=== PATIENT | male | born 1950 | race Caucasian/White ===

== ENCOUNTER → 2017-04-22 | Outpatient (CLI) | payer BC ==
[~2017-04-22] MED LIST: AMLO5TAB2 PO; CHOL1CAP34 PO; CYCL10TA PO; ERGO2000 PO; GABA100C4 PO; LOSA50TA PO; MELO15TA20 PO; NEUR300C PO; TRAM50TA PO; WALKER WHEELS/F1 MIS
[2017-04-22 13:58] LABS: APTT (PATIENT) 27.5 SEC (24.3-30.1); PROTHROMBIN TIME - PATIENT 10.1 SEC (9.8-11.6)
[2017-04-22 14:03] LABS: AUTOMATED NEUTROPHIL # 6.6 TH/MM3 (1.8-7.7); BASOPHIL # 0.1 TH/MM3 (0-0.2); BASOPHIL % 0.7 % (0.0-2.0); EOSINOPHIL # 0.2 TH/MM3 (0-0.4); EOSINOPHIL % 1.5 % (0.0-4.0); HEMATOCRIT 42.5 % (39.0-51.0); HEMO FLAGS DIFF FINAL; LYMPHOCYTE # 2.4 TH/MM3 (1.0-4.8); MEAN CORPUSCULAR HEMOGLOBIN 29.2 PG (27.0-34.0); MEAN CORPUSCULAR HGB CONC 34.8 % (32.0-36.0); MONO % 10.4 % (0.0-8.0); NEUT % 64.4 % (16.0-70.0); PLATELET COUNT 237 TH/MM3 (150-450); RED BLOOD COUNT 5.06 MIL/MM3 (4.50-5.90); RED CELL DISTRIBUTION WIDTH 13.6 % (11.6-17.2); WHITE BLOOD COUNT 10.3 TH/MM3 (4.0-11.0)
[2017-04-22 14:14] LABS: ALT (GPT) 18 U/L (12-78); ANION GAP 4 MEQ/L (5-15); AST (GOT) 11 U/L (15-37); BICARBONATE 32.2 MEQ/L (21.0-32.0); BLOOD UREA NITROGEN 10 MG/DL (7-18); CHLORIDE 104 MEQ/L (98-107); GLOMERULAR FILTRATION RATE 71 ML/MIN (>89); GLUCOSE,FASTING 74 MG/DL (74-99); POTASSIUM 3.5 MEQ/L (3.5-5.1); SODIUM (NA) 140 MEQ/L (136-145)
[2017-04-22 14:16] LABS: ALKALINE PHOSPHATASE 83 U/L (45-117); TOTAL BILIRUBIN ADULT 0.5 MG/DL (0.2-1.0)
[2017-04-22 14:33] LABS: BLOOD, URINE NEG (NEG); COMMENT (UR) CULT NOT INDICATED; CULTURE IF INDICATED CULT NOT INDICATED; GLUCOSE,URINE 1000 mg/dL (NEG); HYALINE CAST, URINE 1 /lpf (RARE); KETONE, URINE NEG (NEG); MUCUS URINE FEW /lpf (OCC); NITRITE,URINE NEG (NEG); URINE COLOR YELLOW (YELLW/STRAW)
--- NOTE | 2017-04-22 14:55 | RADRPT ---
EXAM DATE/TIME: 04/22/2017 14:15 [facility] COMPARISON: No previous studies available for comparison. INDICATIONS : Evaluate for pneumonia, pneumothorax or communicable disease. Pre op for cervical spine -99- 17. MEDICAL HISTORY : None. SURGICAL HISTORY : None. ENCOUNTER: Initial ACUITY: 1 day PAIN SCORE: 0/10 LOCATION: Bilateral chest FINDINGS: PA and lateral views of the chest demonstrate minimal atelectasis at the right lung base. Right hemid iaphragm is slightly elevated. Aorta is quite tortuous.. The cardiomediastinal contours are unremark able. Osseous structures are intact. CONCLUSION: Atelectasis in the right lung base. Aorta is quite tortuous. Darell Schwartz MD on April 22, 2017 at 14:52 Board Certified Radiologist. This report was verified electronically.
--- NOTE | 2017-04-22 16:21 | EKG ---
Date Performed: 04/22/2017 Time Performed: 13:37:04 PTAGE: 67 years EKG: Baseline artifact present Sinus bradycardia Prolonged QT interval Left ventricular hypertro phy Inferior T wave changes are nonspecific Abnormal ECG NO PREVIOUS TRACING DOCTOR: Brandon Bennett Interpretating Date/Time 04/22/2017 16:21:05
[2017-04-22 18:50] LABS: MRSA PCR NEGATIVE (NEGATIVE); STAPH AUREUS PCR POSITIVE (NEGATIVE)
== END ==
LOC: CPRE 13:17
PROVIDERS: ATTEND Neurological Surgery
DX: Z01.812 Encounter for preprocedural laboratory examination (principal); Z01.811 Encounter for preprocedural respiratory examination; Z01.810 Encounter for preprocedural cardiovascular examination; M47.12 Other spondylosis with myelopathy, cervical region; M50.30 Other cervical disc degeneration, unspecified cervical region; M48.02 Spinal stenosis, cervical region; R94.31 Abnormal electrocardiogram [ECG] [EKG]
CPT/HCPCS: 36415; 71020; 80053; 81001; 85025; 85610; 85730; 87640; 87641; 93005

== ENCOUNTER 2017-04-24 05:38 | Inpatient (IN) | payer BC, MEDICARE ==
[~2017-04-24] VITALS: Ht 170.2 cm; Wt 82.5 kg
[~2017-04-24 05:38] MED LIST changes: -CYCL10TA PO; -ERGO2000 PO; -GABA100C4 PO; -NEUR300C PO; -WALKER WHEELS/F1 MIS
[2017-04-24] MEDS ORDERED: SODIUM CHLOR 0.9% 1000 ML INJ 1,000 ML IV SCH (06:15)
[2017-04-24] MEDS ORDERED: VANCOMYCIN HCL 1000 MG ON-CALL/NS 250 ML IV SCH ×2 (06:15)
[2017-04-24] MEDS ORDERED: CHLORHEXIDINE GLUCONATE 2 % 1 PACK (2 CLOTHS) TOPICAL ONE (06:15)
[2017-04-24] MEDS ORDERED: METOPROLOL TARTRATE 25 MG TAB PO PRN (06:30)
[2017-04-24] MEDS ORDERED: LACTATED RINGER'S 1000 ML IV PRN (06:30)
[2017-04-24] MEDS ORDERED: SODIUM CHLORID 0.9% 500 ML IV PRN (06:30)
[2017-04-24] MEDS ORDERED: CHLORHEXIDINE GLUCONATE 2 % 1 PACK (2 CLOTHS) TOPICAL PRN (06:30)
[2017-04-24] MEDS ORDERED: POVIDONE IODINE 5% (ANTISEPSIS KIT) 4 APPLICATIONS EACH NARE PRN (06:30)
[2017-04-24] MEDS ORDERED: THROMBIN (TOPICAL) 5,000 UNIT VIAL ONE ×2 (06:52→10:40)
[2017-04-24] MEDS ORDERED: VANCOMYCIN HCL 1000 MG VIAL ONE (06:52)
[2017-04-24] MEDS ORDERED: GELFOAM SIZE 100 ONE ×2 (06:52→10:41)
[2017-04-24] MEDS ORDERED: BUPIVACAINE/EPINEPHRINE 0.5% PF 30 ML VIAL ONE (06:52)
[2017-04-24] MEDS ORDERED: PROPOFOL 500 MG/50 ML INJ 150 ML ONE (07:19)
[2017-04-24] MEDS ORDERED: ACETAMINOPHEN 1000 MG/100 ML 100 ML IV ONE (07:20)
[2017-04-24] MEDS ORDERED: ARTIFICIAL TEARS OPTH OINT 3.5 APPLIC/3.5 GM TUBO ONE (07:20)
[2017-04-24] MEDS ORDERED: fentaNYL CITRATE 250 MCG/5 ML AMP ONE ×2 (07:21)
[2017-04-24] MEDS ORDERED: DEXAMETHASONE SOD PHOS 4 MG/ML VIAL ONE (08:11)
[2017-04-24] MEDS ORDERED: LIDOCAINE HCL 1% PF 5 ML SYRINGE OTHER ONE (12:00)
[2017-04-24] MEDS ORDERED: LACTATED RINGER'S 1000 ML INJ 2,000 ML IV ONE (12:00)
[2017-04-24] MEDS ORDERED: ceFAZolin INJ 1,000 MG VIAL IV ONE (12:00)
[2017-04-24] MEDS ORDERED: LABETALOL HCL 100 MG/20 ML VIAL IV ONE (12:00)
[2017-04-24] MEDS ORDERED: PROPOFOL 200 MG/20 ML AMP IV ONE (12:00)
[2017-04-24] MEDS ORDERED: ONDANSETRON HCL 4 MG/2 ML VIAL IV ONE (12:00)
[2017-04-24] MEDS ORDERED: KETOROLAC TROMETHAMINE 30 MG/ML (IVP) VIAL IV PUSH ONE (12:00)
[2017-04-24] MEDS ORDERED: SODIUM CHLOR 0.9% 250 ML INJ 250 ML IV ONE (12:00)
[2017-04-24] MEDS ORDERED: PHENYLEPH/NS 1000 MCG/10 ML SYR IV ONE (12:00)
[2017-04-24] MEDS ORDERED: ROCURONIUM INJ 50 MG/5 ML SYRINGE IV PUSH ONE (12:00)
[2017-04-24] MEDS ORDERED: ePHEDrine/NS 25 MG/5 ML SYRINGE IV ONE (12:00)
[2017-04-24] MEDS ORDERED: DEXAMETHASONE SOD PHOS 4 MG/ML VIAL IV ONE (12:00)
[2017-04-24] MEDS ORDERED: SODIUM CHLORID 0.9% 500 ML INJ 500 ML IV ONE (12:00)
[2017-04-24] MEDS ORDERED: MENTHOL LOZENGE BUCCAL PRN (12:15)
[2017-04-24] MEDS ORDERED: cloNIDine HCL 0.1 MG TAB PO PRN (12:15)
[2017-04-24] MEDS ORDERED: SENNOSIDES 8.6 MG TAB PO PRN (12:15)
[2017-04-24] MEDS ORDERED: SODIUM CHLORIDE 0.9% FLUSH 10 ML FLUSH IV FLUSH PRN (12:15)
[2017-04-24] MEDS ORDERED: BISACODYL 10 MG SUPP RECTAL PRN (12:15)
[2017-04-24] MEDS ORDERED: RESP: ALBUTEROL 2.5 MG/3 ML NEB (PRN) NEB (12:15)
[2017-04-24] MEDS ORDERED: PROMETHAZINE INJ 25 MG/ML VIAL IM PRN (12:15)
[2017-04-24] MEDS ORDERED: LACTULOSE SYRUP 20 GM/30 ML CUP PO PRN (12:15)
[2017-04-24] MEDS ORDERED: ACETAMINOPHEN 325 MG TAB PO PRN (12:15)
[2017-04-24] MEDS ORDERED: MORPHINE SULFATE 4 MG/ML INJ IV PUSH PRN (12:15)
[2017-04-24] MEDS ORDERED: ONDANSETRON HCL 4 MG/2 ML VIAL IV PUSH PRN (12:15)
--- NOTE | 2017-04-24 12:20 | PD.OP ---
cc: Fahad Moses MD, MD Operative Report Date of Surgery: Apr 24, 2017 Preoperative Diagnosis: Cervical myelopathy with spinal cord compression at C2-3, C3-4 and C4-5 levels with associated scoliosis Postoperative Diagnosis: Same Procedure: Posterior C2-5 fusion with lateral mass fixation; C2, C3, C4 and C5 decompressive laminectomies; microsurgical technique Anesthesia: Gen. endotracheal by Anirudh lopez Surgeon: Luca Smart M.D. Sewer Tapper(s): Luis Simmons Operation and Findings: Following administration of general endotracheal anesthesia with the neck maintained in neutral position in a [place] collar, patient had a Paz catheter placed with sequential compression devices. A gram of vancomycin and Decadron 10 mg was administered intravenously. He was then turned on a prone position on a Sanjeev table and the head secured in a horseshoe headrest and all pressure points adequately padded. Posterior cervical region was then shaved and prepped with Betadine solution and ChloraPrep. Sterile draping undertaken along with Ioban and a midline incision extending from the C2 to the C5 levels was then made after infiltrating the skin was 0.5% Marcaine with epinephrine solution. Intraoperative fluoroscopy used for level confirmation. Retractors were used for exposure after the fascia incised and the muscular attachments to the spinous process and lamina along with the facets detached from C2-5 levels bilaterally. There appeared to be C2-3 lateral mass auto fusion evident. Further dissection was undertaken using microtechnique with microscope magnification. I drilled out the lamina at the junction of the facets from C3 to C5 levels bilaterally and an en bloc laminectomy undertaken for decompression the spinal canal. The inferior half of the C2/lamina and hypertrophied ligamentum flavum was also resected with a Kerrison and the spinal canal decompressed. The ligamentum flavum were also resected with Kerrisons. The facets on both sides decorticated with a curette. Subsequently lateral mass fixation undertaken with the [employer] screws with entry point of the midportion of the facet on the right side from C3 to C5 levels. The screw trajectory was lateral and superiorly guided with fluoroscopy also. Screws were then connected with a stevenson and locked in place with caps. The construct appeared to be secure this point in AP and lateral fossae confirmed good placement and alignment. The good decorticated facets were then packed from C2 to C5 levels with the local autograft morselized bone for posterolateral fusion. There was thinning of the dura left C2-C3 level which was reinforced with Gelfoam and DuraSeal and no CSF leak encountered. The area was then copiously irrigated with antibody solution laminectomy edges and hemostasis achieved with bone wax along with Gelfoam and thrombin. Retractors removed and the muscle and fascia using 2-0 Vicryl interrupted sutures and 3-0 Vicryl subcuticular stitch also placed in an interrupted fashion and final skin closure was with geni. A sterile dressing was applied and the neck immobilized in the [place] collar. He was then turned in supine position and extubated and taken to recovery room. There were no intraoperative complications and all sponge and needle count was correct at the end the procedure. Estimated blood loss [id number]. Patient did undergo intraoperative neurologic monitoring which remained stable throughout surgery. Luca Smart MD Apr 24, 2017 12:20
[2017-04-24] MEDS: NS + KCL 20 MEQ INJ 1,000 ML IV SCH ×2 (13:00→20:58)
[2017-04-24] MEDS: DEXAMETHASONE SOD PHOS 4 MG/ML VIAL IV PUSH SCH ×2 (13:00→18:49)
[2017-04-24] MEDS ORDERED: DO NOT ADM ANY ANTICOAGULANT DRUGS PRN (13:00)
[2017-04-24] MEDS ORDERED: ceFAZolin INJ 1,000 MG VIAL ONE (13:35)
[2017-04-24] MEDS ORDERED: SODIUM CHLORIDE 0.9% INJ 100 ML ONE (13:36)
--- NOTE | 2017-04-24 14:34 | RADRPT ---
EXAM DATE/TIME: 04/24/2017 09:21 [facility] COMPARISON: No previous studies available for comparison. INDICATIONS : Cervical spine C2-5 laminectomy and fusion. OR. MEDICAL HISTORY : None. SURGICAL HISTORY : None. ENCOUNTER: Initial ACUITY: 1 day PAIN SCORE: Non-responsive. LOCATION: Cervical spine FINDINGS: Two projection examination was performed intraoperatively. 3 levels and laminar screws have been plac ed posteriorly on the right CONCLUSION: Posterior fusion right from C3-C5. Darell Schwartz MD on April 24, 2017 at 14:31 Board Certified Radiologist. This report was verified electronically.
[2017-04-24 16:00] VITALS: BP 134/76; PULSE 73; RESP 18; TEMP 98.1; O2SAT 95
[2017-04-24 20:00] VITALS: BP 125/79; PULSE 70; RESP 18; TEMP 98.4; O2SAT 96
[2017-04-24] MEDS ORDERED: ZOLPIDEM TARTRATE 5 MG TAB PO PRN (21:00)
[2017-04-24] MEDS: DOCUSATE SODIUM 50 MG/SENNA 8.6 MG TAB PO SCH (22:35)
[2017-04-24] MEDS: CYCLOBENZAPRINE HCL 10 MG TAB PO PRN (22:35)
[2017-04-24] MEDS: SODIUM CHLORIDE 0.9% FLUSH 10 ML FLUSH IV FLUSH SCH (22:36)
[2017-04-25] VITALS (8 sets, daily range): BP systolic 123–160; BP diastolic 70–90; PULSE 70–87; RESP 16–20; TEMP 97.4–98.4; O2SAT 93–96
[2017-04-25] MEDS: DEXAMETHASONE SOD PHOS 4 MG/ML VIAL IV PUSH SCH (00:28)
[2017-04-25] MEDS: ACETAMINOPHEN/HYDROcodone 325 MG/10 MG TAB PO PRN ×3 (03:36→20:10)
[2017-04-25] MEDS: NS + KCL 20 MEQ INJ 1,000 ML IV SCH (08:13)
[2017-04-25] MEDS: PANTOPRAZOLE SOD 40 MG DELAYED RELEASE TAB PO SCH (08:45)
[2017-04-25] MEDS: amLODIPine BESYLATE 5 MG TAB PO SCH (08:46)
[2017-04-25] MEDS: LOSARTAN 50 MG TAB PO SCH (08:46)
[2017-04-25] MEDS: DOCUSATE SODIUM 50 MG/SENNA 8.6 MG TAB PO SCH ×2 (08:46→20:06)
[2017-04-25] MEDS: CYCLOBENZAPRINE HCL 10 MG TAB PO PRN ×2 (08:48→16:23)
[2017-04-25] MEDS: SODIUM CHLORIDE 0.9% FLUSH 10 ML FLUSH IV FLUSH SCH ×2 (08:50→20:04)
--- NOTE | 2017-04-25 11:56 | HHI.NSPN ---
(Brian Patterson) History Chief Complaint: Incisional neck pain. (Brian Patterson) Interval History 04/25/17: Pt s/p Posterior C2-5 fusion with lateral mass fixation; C2, C3, C4 and C5 decompressive laminectomies; microsurgical technique on 04/24/17. He is doing well pod #1. Incisional pain controlled with pain medication. No radiculopathy in UEs. Numbness in fingertips in all fingers except thumbs bilaterally. (Brian Patterson) Review of Systems General: Negative for: fever, chills, insomnia Respiratory: Negative for: shortness of breath, cough, sputum Cardiovascular: Negative for: chest pain Gastrointestinal: Negative for: nausea, vomitting, diarrhea, constipation ( Brian Patterson) Exam Results Vital Signs Date Time Temp Pulse Resp B/P (MAP) Pulse Ox O2 Delivery O2 Flow Rate FiO2 04/25/17 09:35 96 04/25/17 08:00 97.8 78 20 147/82 (103) 04/25/17 00:32 Nasal Cannula 2.00 Intake and Output 04/25/17 04/25/17 04/26/17 08:00 16:00 00:00 Intake Total 2100 ml Output Total 600 ml Balance 1500 ml (Brian Patterson) Physical Examination General: Pt resting comfortably in bed in NAD. Resp: CTA bilaterally Heart: NSR no murmurs Abd: Soft positive bs Skin: Incision clean and dry. Bandage intact. Muscle: Moves all 4 extremities well. [place] cervical collar in place. Neuro: Pt awake and alert. Follows simple commands well. Speech clear and appropriate. (Brian Patterson) Lab, Micro, Other Results Last Impressions Cervical Spine X-Ray 04/24/17 0000 Signed Impressions: Service Date/Time: April 09:21 - CONCLUSION: Posterior fusion right from C3-C5. Darell Schwartz MD (Brian Patterson) Medical Decision Making Impression and Plan A: 67 y/o M s/p Posterior C2-5 fusion with lateral mass fixation; C2, C3, C4 and C5 decompressive laminectomies on 04/24/17. P: Continue to monitor Continue with current care Rehab efforts. Pt will need rehab placement. (Brian Patterson) Attending Statement The exam, history, and the medical decision-making described in the above note were completed with the assistance of the mid-level provider. I reviewed and agree with the findings presented. I attest that I had a [id number] encounter with the patient on the same day, and personally performed and documented my assessment and findings in the medical record. Relates minimal pain and ambulated with physical therapy. Stiffness and numbness in the upper extremities is improving postoperatively. Relates to me that he would prefer to go home with PT rather than rehabilitation. We will see how he progresses next couple days prior to making a final disposition. (Luca Smart MD) Brian Patterson Apr 25, 2017 11:56 Luca Smart MD Apr 25, 2017 13:25
[2017-04-25] MEDS: MAGNESIUM HYDROXIDE SUSP 30 ML CUP PO PRN (20:07)
[2017-04-26] VITALS: BP 138/76; PULSE 76; RESP 18; TEMP 98; O2SAT 96
[2017-04-26] MEDS: ACETAMINOPHEN/HYDROcodone 325 MG/10 MG TAB PO PRN ×3 (05:29→18:34)
[2017-04-26] MEDS: CYCLOBENZAPRINE HCL 10 MG TAB PO PRN (05:29)
[2017-04-26 08:00] VITALS: BP 121/74; PULSE 64; RESP 17; TEMP 99.2; O2SAT 93
[2017-04-26] MEDS: PANTOPRAZOLE SOD 40 MG DELAYED RELEASE TAB PO SCH (09:00)
[2017-04-26] MEDS: amLODIPine BESYLATE 5 MG TAB PO SCH (10:55)
[2017-04-26] MEDS: DOCUSATE SODIUM 50 MG/SENNA 8.6 MG TAB PO SCH ×2 (10:55→20:51)
[2017-04-26] MEDS: LOSARTAN 50 MG TAB PO SCH (10:55)
[2017-04-26] MEDS: SODIUM CHLORIDE 0.9% FLUSH 10 ML FLUSH IV FLUSH SCH ×2 (10:56→20:51)
[2017-04-26] MEDS: GABAPENTIN 100 MG CAP PO SCH ×2 (10:59→20:51)
--- NOTE | 2017-04-26 11:05 | HHI.NSPN ---
(Brian Patterson) History Chief Complaint: Incisional neck pain. (Brian Patterson) Interval History 04/25/17: Pt s/p Posterior C2-5 fusion with lateral mass fixation; C2, C3, C4 and C5 decompressive laminectomies; microsurgical technique on 04/24/17. He is doing well pod #1. Incisional pain controlled with pain medication. No radiculopathy in UEs. Numbness in fingertips in all fingers except thumbs bilaterally. 04/26/17: Pt awake and alert. More painful today. Complains of pain into the right shoulder and anterior UE. Pt difficulty sleeping in comfortable position. (Brian Patterson) Review of Systems General: Negative for: fever, chills, insomnia Respiratory: Negative for: shortness of breath, cough, sputum Cardiovascular: Negative for: chest pain Gastrointestinal: Negative for: nausea, vomitting, diarrhea, constipation ( Brian Patterson) Exam Results Vital Signs Date Time Temp Pulse Resp B/P (MAP) Pulse Ox O2 Delivery O2 Flow Rate FiO2 04/26/17 08:00 99.2 64 17 121/74 (90) 93 04/26/17 04:18 Room Air 04/25/17 00:32 2.00 (Brian Patterson) Physical Examination General: Pt resting comfortably in bed in NAD. Resp: CTA bilaterally Heart: NSR no murmurs Abd: Soft positive bs Skin: Incision clean and dry. Bandage intact. Changed this morning by RN. Muscle: Moves all 4 extremities. Some limitation in RUE secondary to pain. [place] cervical collar in place. Neuro: Pt awake and alert. Follows simple commands well. Speech clear and appropriate. (Brian Patterson) Lab, Micro, Other Results Last Impressions Cervical Spine X-Ray 04/24/17 0000 Signed Impressions: Service Date/Time: April 09:21 - CONCLUSION: Posterior fusion right from C3-C5. Darell Schwartz MD (Brian Patterson) Medical Decision Making Impression and Plan A: 67 y/o M s/p Posterior C2-5 fusion with lateral mass fixation; C2, C3, C4 and C5 decompressive laminectomies on 04/24/17. P: Continue to monitor Continue with current care Rehab efforts. Pt will need rehab placement. Pt started on Neurontin 200mg bid and Flexeril 10mg bid. (Brian Patterson) Attending Statement The exam, history, and the medical decision-making described in the above note were completed with the assistance of the mid-level provider. I reviewed and agree with the findings presented. I attest that I had a [id number] encounter with the patient on the same day, and personally performed and documented my assessment and findings in the medical record. Continue with pain management and increase activity status as tolerated. He'll benefit from rehabilitation given that he lives alone and the significant cervical myelopathy preoperatively. (Luca Smart MD) Brian Patterson Apr 26, 2017 11:05 Luca Smart MD Apr 26, 2017 13:20
[2017-04-26 12:00] VITALS: BP 149/95; PULSE 80; RESP 17; TEMP 97.7; O2SAT 94
[2017-04-26 12:08] VITALS: O2SAT 93
[2017-04-26] MEDS: CYCLOBENZAPRINE HCL 10 MG TAB PO SCH ×2 (14:00→20:51)
[2017-04-26 16:00] VITALS: BP 124/65; PULSE 78; RESP 17; TEMP 97.9; O2SAT 93
[2017-04-26 20:16] VITALS: BP 150/87; PULSE 80; RESP 18; TEMP 98.9; O2SAT 95
[2017-04-27 00:17] VITALS: BP 144/75; PULSE 82; RESP 18; TEMP 99.4; O2SAT 95
[2017-04-27] MEDS: ACETAMINOPHEN/HYDROcodone 325 MG/10 MG TAB PO PRN ×3 (03:08→13:57)
[2017-04-27] MEDS: CYCLOBENZAPRINE HCL 10 MG TAB PO SCH ×3 (05:43→21:30)
[2017-04-27 08:00] VITALS: BP 133/77; PULSE 63; RESP 17; TEMP 99.4; O2SAT 90
--- NOTE | 2017-04-27 08:48 | HHI.NSPN ---
History Chief Complaint: Incisional neck pain. Interval History 04/25/17: Pt s/p Posterior C2-5 fusion with lateral mass fixation; C2, C3, C4 and C5 decompressive laminectomies; microsurgical technique on 04/24/17. He is doing well pod #1. Incisional pain controlled with pain medication. No radiculopathy in UEs. Numbness in fingertips in all fingers except thumbs bilaterally. 04/26/17: Pt awake and alert. More painful today. Complains of pain into the right shoulder and anterior UE. Pt difficulty sleeping in comfortable position. 04/27/17: Pt awakens. States pain a little better today. Mild paresthesias in fingers on right. No radiculopathy in UEs. Cervical collar in place. Review of Systems General: Negative for: fever, chills, insomnia Respiratory: Negative for: shortness of breath, cough, sputum Cardiovascular: Negative for: chest pain Gastrointestinal: Negative for: nausea, vomitting, diarrhea, constipation Exam Results Vital Signs Date Time Temp Pulse Resp B/P (MAP) Pulse Ox O2 Delivery O2 Flow Rate FiO2 04/27/17 08:00 99.4 63 17 133/77 (95) 90 04/26/17 16:59 Room Air 04/25/17 00:32 2.00 Intake and Output 04/27/17 04/27/17 04/28/17 08:00 16:00 00:00 Intake Total 240 ml Balance 240 ml Physical Examination General: Pt resting comfortably in bed in NAD. Resp: CTA bilaterally Heart: NSR no murmurs Abd: Soft positive bs Skin: Incision clean and dry. Bandage intact. Muscle: Moves all 4 extremities. Some limitation in RUE secondary to pain. [place] cervical collar in place. Neuro: Pt awake and alert. Follows simple commands well. Speech clear and appropriate. Lab, Micro, Other Results Last Impressions Cervical Spine X-Ray 04/24/17 0000 Signed Impressions: Service Date/Time: April 09:21 - CONCLUSION: Posterior fusion right from C3-C5. Darell Schwartz MD Medical Decision Making Impression and Plan A: 67 y/o M s/p Posterior C2-5 fusion with lateral mass fixation; C2, C3, C4 and C5 decompressive laminectomies on 04/24/17. P: Continue to monitor Continue with current care Rehab efforts. Continue with Neurontin 200mg bid and Flexeril 10mg bid. Brian Patterson Apr 27, 2017 8:48 am
[2017-04-27] MEDS: PANTOPRAZOLE SOD 40 MG DELAYED RELEASE TAB PO SCH (09:09)
[2017-04-27] MEDS: DOCUSATE SODIUM 50 MG/SENNA 8.6 MG TAB PO SCH ×2 (09:09→21:30)
[2017-04-27] MEDS: amLODIPine BESYLATE 5 MG TAB PO SCH (09:09)
[2017-04-27] MEDS: LOSARTAN 50 MG TAB PO SCH (09:09)
[2017-04-27] MEDS: GABAPENTIN 100 MG CAP PO SCH ×2 (09:10→21:30)
[2017-04-27] MEDS: SODIUM CHLORIDE 0.9% FLUSH 10 ML FLUSH IV FLUSH SCH ×2 (09:10→21:31)
[2017-04-27] MEDS: MAGNESIUM HYDROXIDE SUSP 30 ML CUP PO PRN (09:10)
[2017-04-27] MEDS ORDERED: CYCL10TA PO (11:36)
[2017-04-27] MEDS ORDERED: GABA100C4 PO (11:36)
[2017-04-27] MEDS ORDERED: WALKER WHEELS/F1 MIS (11:38)
[2017-04-27 12:00] VITALS: BP 127/74; PULSE 124; RESP 17; TEMP 99.2; O2SAT 90
[2017-04-27 16:00] VITALS: BP 124/78; PULSE 75; RESP 17; TEMP 99.6; O2SAT 90
[2017-04-27 20:30] VITALS: BP 118/73; PULSE 86; RESP 17; TEMP 98; O2SAT 97
[2017-04-28 00:17] VITALS: BP 104/69; PULSE 89; RESP 17; TEMP 97.6; O2SAT 96
[2017-04-28] MEDS: ACETAMINOPHEN/HYDROcodone 325 MG/10 MG TAB PO PRN ×2 (01:53→09:21)
[2017-04-28] MEDS: CYCLOBENZAPRINE HCL 10 MG TAB PO SCH ×3 (05:30→22:07)
[2017-04-28 08:00] VITALS: BP 125/81; PULSE 63; RESP 18; TEMP 96; O2SAT 93
[2017-04-28] MEDS: DOCUSATE SODIUM 50 MG/SENNA 8.6 MG TAB PO SCH ×2 (08:11→19:39)
[2017-04-28] MEDS: amLODIPine BESYLATE 5 MG TAB PO SCH (08:11)
[2017-04-28] MEDS: LOSARTAN 50 MG TAB PO SCH (08:11)
[2017-04-28] MEDS: GABAPENTIN 100 MG CAP PO SCH (08:11)
[2017-04-28] MEDS: PANTOPRAZOLE SOD 40 MG DELAYED RELEASE TAB PO SCH (08:11)
[2017-04-28] MEDS: SODIUM CHLORIDE 0.9% FLUSH 10 ML FLUSH IV FLUSH SCH ×2 (08:15→19:39)
--- NOTE | 2017-04-28 09:23 | HHI.NSPN ---
History Chief Complaint: Incisional neck pain. Interval History 67-year-old gentleman with severe cervical myelopathy from multilevel cervical stenosis with extensive degenerative changes and scoliosis who is status post C2 -5 decompressive laminectomy with lateral mass fixation and fusion. Relates the neck discomfort along with the bilateral shoulder discomfort which worsens with movement. Has been ambulating with assistance and urinating but relates stiffness in the upper extremities and cannot go home. Review of Systems General: Negative for: fever, chills, insomnia Respiratory: Negative for: shortness of breath, cough, sputum Cardiovascular: Negative for: chest pain, palpitations, orthopnea Gastrointestinal: Negative for: nausea, vomitting, diarrhea, constipation Genitourinary: Negative for: urinary burning, urinary frequency, urinary urgency Exam Results Vital Signs Date Time Temp Pulse Resp B/P (MAP) Pulse Ox O2 Delivery O2 Flow Rate FiO2 04/28/17 08:00 96.0 63 18 125/81 (96) 93 04/27/17 22:00 Room Air 04/25/17 00:32 2.00 Intake and Output 04/28/17 04/28/17 04/29/17 08:00 16:00 00:00 Intake Total 240 ml Balance 240 ml Physical Examination General: Pt in bed but when he tries to get up relates that the neck pain and shoulder pain worsen. Resp: CTA bilaterally Heart: NSR no murmurs Abd: Soft positive bs Skin: Incision clean and dry. Bandage intact. Muscle: Moves all 4 extremities. Some limitation in RUE secondary to pain. [place] cervical collar in place. Neuro: Pt awake and alert. Follows simple commands well. Speech clear and appropriate. Medical Decision Making Impression and Plan 67-year-old gentleman with a severe cervical myelopathy status post C2-5 laminectomy with fusion. Continue with pain control and physical and occupational therapy. He is on [place] with morphine for breakthrough pain along with gabapentin and Flexeril. We will increase her gabapentin dose to 600 mg a day. Plan on inpatient rehabilitation placement tomorrow. Luca Smart MD Apr 28, 2017 09:23
[2017-04-28] MEDS: ACETAMINOPHEN/HYDROcodone 325 MG/10 MG TAB PO SCH ×4 (10:00→22:07)
[2017-04-28 12:00] VITALS: BP 102/59; PULSE 58; RESP 18; TEMP 97.8; O2SAT 92
[2017-04-28 16:00] VITALS: BP 133/80; PULSE 63; RESP 18; TEMP 96; O2SAT 92
[2017-04-28] MEDS: GABAPENTIN 300 MG CAP PO SCH (19:37)
[2017-04-28 20:00] VITALS: BP 141/87; PULSE 65; RESP 17; TEMP 96.8; O2SAT 93
[2017-04-29] VITALS: BP 108/69; PULSE 68; RESP 17; TEMP 98; O2SAT 94
[2017-04-29] MEDS: ACETAMINOPHEN/HYDROcodone 325 MG/10 MG TAB PO SCH ×2 (02:00→04:51)
[2017-04-29] MEDS: CYCLOBENZAPRINE HCL 10 MG TAB PO SCH ×3 (04:51→22:58)
[2017-04-29 08:00] VITALS: BP 113/76; PULSE 62; RESP 18; TEMP 97.9; O2SAT 93
[2017-04-29] MEDS: amLODIPine BESYLATE 5 MG TAB PO SCH (09:00)
[2017-04-29] MEDS: LOSARTAN 50 MG TAB PO SCH (09:00)
[2017-04-29] MEDS ORDERED: ERGOCALCIFEROL (VIT D2) 50,000 UNIT CAP PO SCH (09:00)
[2017-04-29] MEDS: ACETAMINOPHEN/HYDROcodone 325 MG/10 MG TAB PO PRN ×4 (09:22→22:58)
[2017-04-29] MEDS: PANTOPRAZOLE SOD 40 MG DELAYED RELEASE TAB PO SCH (09:22)
[2017-04-29] MEDS: DOCUSATE SODIUM 50 MG/SENNA 8.6 MG TAB PO SCH ×2 (09:23→19:53)
[2017-04-29] MEDS: GABAPENTIN 300 MG CAP PO SCH ×2 (09:23→19:53)
[2017-04-29] MEDS: SODIUM CHLORIDE 0.9% FLUSH 10 ML FLUSH IV FLUSH SCH ×2 (09:27→19:53)
--- NOTE | 2017-04-29 11:25 | HHI.NSPN ---
History Chief Complaint: Incisional neck pain. Interval History 04/25/17: Pt s/p Posterior C2-5 fusion with lateral mass fixation; C2, C3, C4 and C5 decompressive laminectomies; microsurgical technique on 04/24/17. He is doing well pod #1. Incisional pain controlled with pain medication. No radiculopathy in UEs. Numbness in fingertips in all fingers except thumbs bilaterally. 04/26/17: Pt awake and alert. More painful today. Complains of pain into the right shoulder and anterior UE. Pt difficulty sleeping in comfortable position. 04/27/17: Pt awakens. States pain a little better today. Mild paresthesias in fingers on right. No radiculopathy in UEs. Cervical collar in place. 04/29/17: Pt awakens easily. Complains of neck pain radiating into right shoulder and intrascapular area. Pt ambulating. Review of Systems General: Negative for: fever, chills, insomnia Respiratory: Negative for: shortness of breath, cough, sputum Cardiovascular: Negative for: chest pain Gastrointestinal: Negative for: nausea, vomitting, diarrhea, constipation Exam Results Vital Signs Date Time Temp Pulse Resp B/P (MAP) Pulse Ox O2 Delivery O2 Flow Rate FiO2 04/29/17 10:22 18 04/29/17 08:00 97.9 62 113/76 (88) 93 04/27/17 22:00 Room Air Intake and Output 04/29/17 04/29/17 04/29/17 07:59 15:59 23:59 Intake Total 480 ml Balance 480 ml Physical Examination General: Pt in bed but when he tries to get up relates that the neck pain and shoulder pain worsen. Resp: CTA bilaterally Heart: NSR no murmurs Abd: Soft positive bs Skin: Incision clean and dry. Bandage intact. Muscle: Moves all 4 extremities. Some limitation in RUE secondary to pain. [place] cervical collar in place. Neuro: Pt awake and alert. Follows simple commands well. Speech clear and appropriate. Lab, Micro, Other Results Last Impressions Cervical Spine X-Ray 04/24/17 0000 Signed Impressions: Service Date/Time: April 09:21 - CONCLUSION: Posterior fusion right from C3-C5. Darell Schwartz MD Medical Decision Making Impression and Plan A: 67 y/o M s/p Posterior C2-5 fusion with lateral mass fixation; C2, C3, C4 and C5 decompressive laminectomies on 04/24/17. P: Continue to monitor Continue with current care Rehab efforts. Pt would benefit from rehab placement. Continue with Neurontin, dose was increased yesterday. Brian Patterson Apr 29, 2017 11:25 am
[2017-04-29 12:00] VITALS: BP 150/85; PULSE 63; RESP 18; TEMP 97.5; O2SAT 93
[2017-04-29] MEDS ORDERED: NEUR300C PO (14:35)
--- NOTE | 2017-04-29 14:37 | HHI.FF ---
Face to Face Verification Diagnosis: (1) Myelopathy, spondylogenic, cervical (2) Degenerative cervical spinal stenosis (3) Degenerative disc disease, cervical (4) Scoliosis of cervical spine Physical Therapy Order: Evaluate and Treat, Improve ambulation, Strength and gait training Home Health Nursing Order: Wound care and dressing changes Nursing assessment with vital signs I have seen patient Nahid Borden on 04/29/17. My clinical findings support the need for the requested home health care services because: Deconditioned w/ increased weakness High risk of falls I certify that my clinical findings support that this patient is homebound because: Post-op weakness Unsteady gait/balance Unable to use public transportation Brian Patterson Apr 29, 2017 2:37 pm
[2017-04-29 16:00] VITALS: BP 133/82; PULSE 78; RESP 16; TEMP 97.5; O2SAT 95
[2017-04-29 21:52] VITALS: BP 126/80; PULSE 80; RESP 20; TEMP 99.5; O2SAT 95
[2017-04-30 00:56] VITALS: BP 132/82; PULSE 64; RESP 16; TEMP 97; O2SAT 93
[2017-04-30] MEDS: ACETAMINOPHEN/HYDROcodone 325 MG/10 MG TAB PO PRN ×4 (03:17→17:30)
[2017-04-30 04:51] VITALS: BP 142/77; PULSE 61; RESP 18; TEMP 97.5; O2SAT 94
[2017-04-30] MEDS: CYCLOBENZAPRINE HCL 10 MG TAB PO SCH ×2 (05:19→12:58)
[2017-04-30 07:48] VITALS: BP 150/81; PULSE 60; RESP 18; TEMP 95.9; O2SAT 93
[2017-04-30] MEDS: GABAPENTIN 300 MG CAP PO SCH (08:23)
[2017-04-30] MEDS: LOSARTAN 50 MG TAB PO SCH (08:24)
[2017-04-30] MEDS: amLODIPine BESYLATE 5 MG TAB PO SCH (08:24)
[2017-04-30] MEDS: PANTOPRAZOLE SOD 40 MG DELAYED RELEASE TAB PO SCH (08:24)
[2017-04-30] MEDS: SODIUM CHLORIDE 0.9% FLUSH 10 ML FLUSH IV FLUSH SCH (08:28)
[2017-04-30] MEDS: DOCUSATE SODIUM 50 MG/SENNA 8.6 MG TAB PO SCH (08:29)
[2017-04-30 11:31] VITALS: BP 131/81; PULSE 64; RESP 18; TEMP 96.8; O2SAT 92
[2017-04-30 15:35] VITALS: BP 125/79; PULSE 73; RESP 18; TEMP 96.6; O2SAT 91
== END 2017-04-30 17:40 | disposition home health service (06) | DRG 29 ==
LOC: HSDI 05:38 → N06A 14:45
PROVIDERS: ADMIT Neurological Surgery; ATTEND Neurological Surgery
PROC: 0RG20J1 Fusion of 2 or more Cervical Vertebral Joints with Synthetic Substitute, Posterior Approach, Posterior Column, Open Approach (ICD-10-PCS; 2017-04-24)
PROC: 00NW0ZZ Release Cervical Spinal Cord, Open Approach (ICD-10-PCS; principal; 2017-04-24 08:32)
DX: G95.29 Other cord compression (principal); M47.12 Other spondylosis with myelopathy, cervical region; M48.02 Spinal stenosis, cervical region; M41.82 Other forms of scoliosis, cervical region
CPT/HCPCS: 36415; 71020; 72040; 76000; 80053; 81001; 85025; 85610; 85730; 87640; 87641; 93005; 94150; C1713; J0131; J0690; J1100; J1885; J2370; J2405; J3010; J3370; J3480; J7040; J7050; J7120; L0150; L0172